=== PATIENT | female | born 1960 | race Caucasian/White ===

== ENCOUNTER → 2016-11-30 | Outpatient (CLI) | payer BC ==
[~2016-11-30] MED LIST: LEVOTHROID (S112 MCG PO; NORCO 5-325 MG1 TAB PO; XANAX0.5 MG PO
== END | disposition disaster alternative care site (69) ==
LOC: GBCOE 06:48
DX: Z12.31 Encounter for screening mammogram for malignant neoplasm of breast (principal)
CPT/HCPCS: G0202